=== PATIENT | male | born 1980 | race Hispanic/Latino ===

== ENCOUNTER 2016-07-13 21:02 | Emergency (ER) | payer BC, OTHER ==
[2016-07-13 21:37] VITALS: BP 125/80; PULSE 82; RESP 16; TEMP 98; O2SAT 100
--- NOTE | 2016-07-13 22:03 | ED PDOC ---
Upper Extremity Pain/Injury Time Seen by Provider: 07/13/16 21:47 Chief Complaint (Nursing): Finger,Hand,&Wrist Chief Complaint (Provider): left hand 5th digit injury History Per: Patient History/Exam Limitations: no limitations Onset/Duration Of Symptoms: Hrs (1) Current Symptoms Are (Timing): Still Present Hands/Wrist (Pic): 1 - Tenderness, Swelling, Pain Worse W/Movement Additional History Per: Patient Additional Complaint(s): 36 y/o male presents with pain to left hand 5th digit x 1 hour. Patient states he jammed it while playing basketball, and now has limited range of motion. Denies numbness/weakness left upper extremity. Past Medical History Reviewed: Historical Data, Nursing Documentation, Vital Signs Vital Signs: Last Vital Signs Temp 98.0 F 07/13/16 21:35 Pulse 82 07/13/16 21:35 Resp 16 07/13/16 21:35 BP 125/80 07/13/16 21:35 Pulse Ox 100 07/13/16 21:35 - Medical History PMH: No Chronic Diseases - Surgical History Surgical History: Hernia Repair (left inguinal) - Family History Family History: States: Unknown Family Hx - Living Arrangements Living Arrangements: With Family - Allergies Allergies/Adverse Reactions: Allergies Allergy/AdvReac Type Severity Reaction Status Date / Time No Known Allergies Allergy Verified 07/13/16 21:35 Review of Systems ROS Statement: Except As Marked, All Systems Reviewed And Found Negative Musculoskeletal: Positive for: Hand Pain (left hand 5th digit) Physical Exam - Reviewed Nursing Documentation Reviewed: Yes Vital Signs Reviewed: Yes - Physical Exam Appears: Positive for: Well, Non-toxic, No Acute Distress Pulses-Radial (L): 2+ Pulses-Radial (R): 2+ Extremity: Positive for: Capillary Refill (<2 sec b/l UE), Deformity (PIP left hand 5th digit. Limited ROM DIP left hand 5th digit. Distal NV intact) - ECG O2 Sat by Pulse Oximetry: 100 - Other Rad xray left hand 5th digit X-Ray: Viewed By Or X-Ray Interpretation: lateral dislocation PIP left hand 5th digit - Progress ED Course And Treament: xray verbal consent given by patient for reduction of left hand 5th digit PIP. Multiple attempts by conventional mortgage underwriter without success. Dr. Butt at bedside for attempt, recommends digital block for further attempts. Left hand 5th digit digital block performed using 2CC 1% lidocaine Dr. Butt performed successful reduction. Distal NV, motor intact. FROM left hand 5th digit. Finger placed in splint. Patient educated on RICE. Follow up hand. Return to ED for worsening/concerning symptoms. Disposition - Clinical Impression Clinical Impression: Finger dislocation - Patient ED Disposition Is Patient to be Admitted: No Counseled Patient/Family Regarding: Studies Performed, Diagnosis, Need For Followup - Disposition Referrals: Joel Davalos MD [Medical Doctor] - Disposition: Routine/Home Disposition Time: 00:25 Condition: IMPROVED Instructions: Finger Dislocation (ED)
[2016-07-13] MEDS ORDERED: Lidocaine 1% Inj (20ml) IJ ONE (23:34)
--- NOTE | 2016-07-14 16:16 | RAD ---
PROCEDURE: Left Hand Radiographs. HISTORY: injury, pain/deformity COMPARISON: None. FINDINGS: BONES: Fifth digit dislocation proximal interphalangeal joint. SOFT TISSUES: Normal. OTHER FINDINGS: None. IMPRESSION: Acute dislocation without fracture proximal interphalangeal joint left 5th digit.
== END 2016-07-14 00:32 | disposition home or self-care (01) ==
LOC: H.ER 21:02
DX: S63.207A Unspecified subluxation of left little finger, initial encounter (principal); X50.9XXA Other and unspecified overexertion or strenuous movements or postures, initial encounter; Y92.310 Basketball court as the place of occurrence of the external cause